=== PATIENT | male | born 1960 | race African-American/Black ===

== ENCOUNTER 2019-09-21 00:09 | Observation (INO) ==
[2019-09-21] MEDS ORDERED: ACETAMINOPHEN 325 MG TABLET PO PRN (02:31)
[2019-09-21] MEDS ORDERED: ONDANSETRON 4 MG/2 ML VIAL IV PRN (02:31)
[2019-09-21] MEDS ORDERED: ENOXAPARIN 40 MG/0.4 ML SYRINGE SUBCUT SCH ×2 (03:00→09:00)
[2019-09-21] MEDS ORDERED: FLUTICASONE 50 MCG NASAL SPRAY 16 GM BOTTLE BOTH NARES PRN (05:07)
[2019-09-21] MEDS ORDERED: MAGNESIUM SULF RIDER 4 GM in PREMIX 1 EACH IV PRN (05:50)
[2019-09-21] MEDS ORDERED: MAGNESIUM SULF RIDER 2 GM in PREMIX 1 EACH IV PRN (05:50)
[2019-09-21] MEDS ORDERED: POTASSIUM CHLORIDE 20 MEQ TABLET PO PRN (05:50)
[2019-09-21 07:14] LABS: Basophils % 0.3 % (0.0-0.8); Basophils % 0.4 % (0.0-0.8); Eosinophils # 0.4 10*3/uL (0.0-0.87); Eosinophils % 5.5 % (0.00-10.9); Eosinophils % 5.8 % (0.00-10.9); Hematocrit 43.1 VOL% (42.0-52.0); Hematocrit 43.5 VOL% (42.0-52.0); Hemoglobin 14.4 GM/DL (14.0-18.0); Hemoglobin 14.5 GM/DL (14.0-18.0); Immature Granulocytes % 0.3 %; Immature Granulocytes % 1.2 %; Immature Granulocytes Absolute 0.02 #; Immature Granulocytes Absolute 0.08 #; Lymphocytes # 0.9 10*3/uL (1.4-4.0); Lymphocytes % 13.6 % (21.2-54.2); Lymphocytes % 13.7 % (21.2-54.2); Mean Corpuscular HGB Conc 33.1 GM/DL (32-36); Mean Corpuscular HGB Conc 33.6 GM/DL (32-36); Mean Corpuscular Volume 84.3 FL (87-102); Mean Corpuscular Volume 85.3 FL (87-102); Mean Platelet Volume 10.7 FL (9.6-12.0); Mean Platelet Volume 10.9 FL (9.6-12.0); Monocytes % 5.1 % (1.7-12.7); Monocytes % 5.6 % (1.7-12.7); Neutrophils % 73.8 % (38.7-73.9); Neutrophils % 74.7 % (38.7-73.9); Platelet Count 185 T/CUMM (130-400); Platelet Count 196 T/CUMM (130-400); Red Blood Count 5.11 MC/CUMM (3.8-5.5); Red Cell Distribution Width 13.2 % (9.3-17.3); Red Cell Distribution Width 13.4 % (9.3-17.3); White Blood Count 6.8 T/CUMM (4-12)
[2019-09-21 07:40] LABS: Calcium 9.4 MG/DL (8.5-10.1); Osmolality,Calculated 279.3 MOS/KG (273-304)
[2019-09-21 07:51] LABS: Folate > 24.0 NG/ML (5.4-24.0); Vitamin B12 937 PG/ML (211-911)
[2019-09-21 07:52] LABS: % Iron Saturation 14.7 % (18-50); Ferritin 53.8 ng/ml (26-388)
[2019-09-21] MEDS: ALBUTEROL 2.5 MG/3 ML NEB RESP TX SCH ×3 (08:00→14:27)
[2019-09-21 08:20] LABS: Sedimentation Rate-Westergren 14 MM/HR (0-20)
[2019-09-21] MEDS ORDERED: LISINOPRIL 20 MG TABLET PO SCH ×2 (09:00→21:00)
[2019-09-21] MEDS ORDERED: METOPROLOL SUCCINATE XL 25 MG TABLET PO SCH (09:00)
[2019-09-21] MEDS ORDERED: PANTOPRAZOLE 40 MG TABLET PO SCH (09:00)
[2019-09-21] MEDS ORDERED: ASPIRIN EC 81 MG TABLET PO SCH ×2 (09:00→21:00)
[2019-09-21 10:16] LABS: Hemoglobin A1 (Alkaline) 60.4 % (96.5-98.5); Hemoglobin A2 (Alkaline) 2.8 % (1.5-3.5)
[2019-09-21 11:05] LABS: Hemoglobin S (Alkaline) 36.8 %
[2019-09-21] MEDS ORDERED: amLODIPine 5 MG TABLET PO SCH (12:30)
[2019-09-21 15:03] VITALS: BP 142/91
[2019-09-21] MEDS ORDERED: ATORVASTATIN 40 MG TABLET PO SCH (21:00)
[2019-09-22] MEDS ORDERED: METOPROLOL SUCCINATE XL 25 MG TABLET PO SCH (09:00)
== END 2019-09-21 16:27 | disposition home or self-care (01) ==
LOC: N.5E → SUATTDRO 01:49
PROVIDERS: ADMIT Internal Medicine; ATTEND Internal Medicine